=== PATIENT | male | born 1970 | race Caucasian/White ===

== ENCOUNTER 2022-11-07 09:15 | Emergency (ER) | payer OTHER, SELFPAY ==
[2022-11-07 09:20] VITALS: BP 129/73; PULSE 85; RESP 12; TEMP 37.2; O2SAT 97
--- NOTE | 2022-11-07 09:38 | ED.EYEPROB ---
HPI - Eye Problem General Chief complaint: Eye Problems Stated complaint: Eye Infection Source: patient and RN notes reviewed History of Present Illness HPI Narrative: 52-year-old male presents to urgent care with complaints of bilateral eye irritation. Patient states this has been going on for the last 3 days. Patient reports increased tearing in both eyes and states he is making up with his eyes matted shut with thick drainage. Patient reports some visual disturbance and contributes that to the drainage in his eyes. Patient reports soreness in his diet. Denies any itchiness. Patient does not wear contacts. Denies any fevers or chills. Related Data Allergies Allergy/AdvReac Type Severity Reaction Status Date / Time amoxicillin Allergy Mild THRUSH Verified 11/07/22 09:25 Review of Systems Review of Systems: CONSTITUTIONAL: Denies fever, chills, or sweats. EYES: bilateral eye drainage, matting, redness, and irritation ENT: Denies otalgia and sore throat CARDIOVASCULAR: Denies chest pain, palpitations, or edema. RESPIRATORY: Denies cough or dyspnea. GASTROINTESTINAL: Denies abdominal pain, nausea, vomiting, or diarrhea. GENITOURINARY: Denies dysuria or hematuria. SKIN: Denies rash or itching. MUSCULOSKELETAL: Denies back pain, joint pain, or myalgia. NEUROLOGIC: Denies headache, numbness, or weakness. Pertinent positives per HPI. [facility] Social History Social History (Updated 07/21/21 @ 13:20 by Amanda Hermosillo MA) Smoking packs per day: 1 Smoking cigarettes per day: 20.0 Years smoked: 20 Smoking pack-years: 20.00 Alcohol intake: current Alcohol use details: SOCIAL Substance use: never Substance use type: does not use Comments At the time of my signature, I reviewed and agree with the nursing past medical, surgical, social, and family history. There is no relevant family history pertinent to the patient complaint. Exam Narrative: GENERAL: This is a well-nourished, well-developed patient, in no apparent distress. HEAD: normocephalic, atraumatic. EYES: Bilateral conjunctivae injected. Minimal drainage noted to both eyes. EARS: External ears normal, auditory canals clear and without drainage, TMs normal without perforation. Hearing grossly intact. NOSE: External nose normal with no obvious nasal discharge, nares without redness, no rhinorrhea. THROAT: Mucous membranes moist, posterior pharynx clear. NECK: Neck supple, non-tender without lymphadenopathy, masses or thyromegaly. CARDIOVASCULAR: Regular rate RESPIRATORY: no respiratory distress SKIN: warm, intact with no suspicious lesions or rash, good texture and turgor. NEURO: awake, alert, and oriented to person, place and time. There were no obvious focal neurologic abnormalities. Course Course Level of Care: Express Care Visit Vital Signs Vital signs: Reviewed MDM - Eye Problem MDM Narrative Medical decision making narrative: Your exam today shows Conjunctivitis, You have been given a prescription for eye drops. Use the eye drops as instructed. If you are not better in two (2) days, you need to follow up with an test kitchen home economist. Do not rub the eye or put anything else in the eye, this can cause abrasions (scratches) on the eye or lead to vision loss. Also it is important not to touch the tube or tip of drops to the eye, as this can cause further infection. Wash your hands very well before instilling the medication. Handwashing can help prevent the spread of disease. Follow up with PCP in 7-10 days Return to ER for problems Contact [facility] if you need an Capacitor Pack Press Operator Differential Diagnosis Differential diagnosis: Likely corneal abrasion, conjunctivitis and acute iritis Critical Care Time Critical Care Time Critical Care Time: No Discharge Plan Discharge Clinical Impression: Conjunctivitis Qualifiers: Conjunctivitis type: unspecified Laterality: bilateral Qualified Code(s): H10.9 - Unspecified
== END 2022-11-07 09:42 | disposition home or self-care (01) ==
PROVIDERS: Emergency Provider Nurse Practitioner Family; PCP Family Medicine
DX: H10.9 Unspecified conjunctivitis (principal); F17.210 Nicotine dependence, cigarettes, uncomplicated
CPT/HCPCS: 99213; G0463

== ENCOUNTER 2023-02-09 13:38 | Outpatient (CLI) | payer OTHER, SELFPAY ==
--- NOTE | ~2023-02-09 | CT_ITS ---
EXAMINATION: CT lung screening DATE: 02/09/2023 14:08 INDICATION: Personal history of nicotine dependence, current smoker with 30 pack year history TECHNIQUE: Computed tomography (CT) of the chest was performed without intravenous contrast. The dose -length product (DLP) was 105.65 mGy-cm. Automated exposure control and iterative reconstruction tech [email or web address] were employed. COMPARISON: None FINDINGS: There is mild emphysema. 3 mm nodule in the left lower lobe. No pleural effusion or pneumot horax. There is mild dependent atelectasis. No pathologically enlarged thoracic lymph nodes are ident ified. The heart size is normal. Calcified coronary artery atherosclerosis is noted. There is moderat e lumbar spondylosis. IMPRESSION: 1. Lung-RADS category 2: Benign appearance or behavior. Continue annual screening with noncontrast lo w-dose chest CT in 12 months. Reviewed, dictated and finalized at location L. IMPRESSION: 1. Lung-RADS category 2: Benign appearance or behavior. Continue annual screeni ng with noncontrast low-dose chest CT in 12 months.
== END 2023-02-09 13:39 | disposition home or self-care (01) ==
LOC: ANHIMG 13:39
PROVIDERS: PCP Family Medicine; Visit Provider Family Medicine
DX: Z12.2 Encounter for screening for malignant neoplasm of respiratory organs (principal); F17.210 Nicotine dependence, cigarettes, uncomplicated
CPT/HCPCS: 71271

== ENCOUNTER 2025-03-28 14:54 | Outpatient (CLI) | payer OTHER, SELFPAY ==
--- NOTE | ~2025-03-28 | CT_ITS ---
EXAMINATION: CT lung screening DATE: 03/28/2025 15:12 INDICATION: Personal history of nicotine dependence TECHNIQUE: Computed tomography (CT) of the chest was performed without intravenous contrast. The dose-length product was 125.49 mGy-cm.] Automated exposure control and iterative reconstruction technique were employed. COMPARISON: CT dated 02/09/2023 FINDINGS: No significant pleural or pericardial effusion. Heart size normal. There is atherosclerosis of the aorta and coronary arteries. No thoracic lymphadenopathy. No endobronchial lesions. No focal airspace consolidation. Stable 3 mm left lower lobe nodule. No new pulmonary nodules or masses. IMPRESSION: 1. Lung-RADS category 2: Benign appearance or behavior. Continue annual screening with noncontrast low-dose chest CT in 12 months. Reviewed, dictated and finalized at location O. FITS SPECIALIST IMPRESSION: 1. Lung-RADS category 2: Benign appearance or behavior. Continue annual screeni ng with noncontrast low-dose chest CT in 12 months.
--- OUTSIDE RECORDS SUMMARY | 2025-03-29 14:42 | XMS_ITS | Clinical Summary ---
Author Organization [facility] Address [address] [place] [address] Care Team Providers Care Piano And Organ Refinisher Name Role Phone Unknown, Provider Primary Care Provider Unavaila ble Source Comments [facility],non-owned Affiliates and Associated Physician Practices is amultiple site organization consisting of ambulatory clinics and hospital sitesin [place], [place], [place] and [place]. This disclosure is being madepursuant to the Care Everywhere program and may not contain all information available regarding this patient. Last updated 18.[facility] Allergies No known active allergies Medications * Be aware that medications may not be up to date on this document. Alwaysverify current medications with the patient. Doxycycline Hyclate (DOXY-CAPS PO) Activ e amLODIPine (NORVASC) 5 MG tablet Take 5 mg by mouth once daily Active HYDROCHLOROTHIAZ AGGIE PO Active Aluminum & Magnesium Hydroxide (MAALOX/2% VISCOUS LIDOCAINE/BENADR YL TINCT 1:1:1)Indication s:Thrush Take 15 mL by mouth every 2 hours as needed (for mouth sores) Swish and Spit 720 mL 1 12/05/2020 Active Active Problems No known active problems Social History Tobacco Use Types Packs/Day Years Used Date Smoking Tobacco: Every Day Smokeless Tobacco: Never Sex and Gender Information Value Date Recorded Sex Assigned at Not on file Legal Sex Male 9:29 AM CDT Gender Identity Not on file Sexual Orientation Not on file Last Filed Vital Signs Vital Sign Reading Time Taken Comments Blood Pressure 130/88 12/05/2020 12:56 PM CDT Pulse 99 12/05/2020 12:56 PM CDT Temperature 36.9 C (98.5 F) 12/05/2020 12:56 PM CDT Respiratory Rate - - Oxygen Saturation 97% 12/05/2020 12:56 PM CDT Inhaled Oxygen Concentration - - Weight 83.9 kg (185 lb) 12/05/2020 12:56 PM CDT Height 177.8 cm (5' 10) 12/05/2020 12:56 PM CDT Body Mass Index 26.54 12/05/2020 12:56 PM CDT Plan of Treatment Health Maintenance Due Date Last Done Comments COLOGUARD (AGES 45-75) - COL ON CA SCREENING 1972 COLON MONITORING 1972 COLONOSCOPY - COLON CA SCREENING 1972 CT COLONOGRAPHY - COLON CA SCREENING 1972 Colorectal Cancer Screening 1972 FIT - COLON CA SCREENING 1972 FLEX SIG - COLON CA SCREENING 1972 LIPID TESTING 1972 HIV SCREENING 02/04/1987 HEPATITIS C SCREENING 01/31/1990 DTAP/TDAP/TD VACCINES (1 - Tdap) 02/04/1991 HEPATITIS B VACCINE (1 of 3 - 19+ 3-dose series) 02/04/1991 SCREENING FOR DIABETES 12/05/2020 PNEUMOCOCCAL VACCINE 50+ (1 of 1 - PCV) 02/04/2022 ZOSTER VACCINE (1 of 2) 02/04/2022 DEPRESSION SCREENING 05/24/2024 COVID-19 VACCINE (3 - 2024-2 6 season) 2025 06/19/2020, 05/29/2020 INFLUENZA VACCINE (#1) 2025 HIB VACCINE Aged Out No longer eligi ble based on patient's age to complete this topic HPV VACCINE Aged Out No longer eligi ble based on patient's age to complete this topic MENINGOCOCCAL (Group B) VACCINE SHARED DECISION-MAKING Aged Out No longer eligible based on patient's age to complete this topic MENINGOCOCCAL GROUPS A/C/Y/W VACCINE Aged Out No longer eligible b ased on patient's age to complete this topic Insurance [employer] Care Teams Piano And Organ Refinisher Relationship Specialty Start Date End Date Unknown, Provider PCP - General 12/05/20
== END 2025-03-28 14:55 | disposition home or self-care (01) ==
LOC: ANHIMG 14:59
PROVIDERS: PCP Family Medicine; Visit Provider Family Medicine
DX: Z12.2 Encounter for screening for malignant neoplasm of respiratory organs (principal); Z87.891 Personal history of nicotine dependence
CPT/HCPCS: 71271

== ENCOUNTER 2025-04-16 06:33 | Day surgery (SDC) | payer OTHER, SELFPAY ==
[2025-04-04 13:46] VITALS: BMI 28.0
[2025-04-16 07:04] VITALS: BP 140/91; PULSE 80; RESP 18; TEMP 36.6; O2SAT 99
--- NOTE | 2025-04-16 07:19 | P.PNAN_ITS ---
Anes - Initial Pre Proc Eval Procedure: Operation Date: 04/16/25 08:00 Proposed Procedures p Screening Colonoscopy - Bethel Thomas DO Date/Time: 04/16/25 07:19 Surgeon: Bethel Thomas DO Pre Op Diagnosis: Neoplasm Screening Patient Data Age: 55 Gender: M Height: 1.75 m Weight: 83.5 kg Last Vital Signs Temp 97.9 F 04/16/25 07:04 Pulse 80 04/16/25 07:04 Resp 18 04/16/25 07:04 BP 140/91 H 04/16/25 07:04 Pulse Ox 99 04/16/25 07:04 O2 Del Method Room Air 04/16/25 07:04 Allergies Allergy/AdvReac Type Severity Reaction Status Date / Time amoxicillin AdvReac Mild THRUSH Verified 04/16/25 06:59 Home Medications ?Medication ?Instructions ?Recorded ?Confirmed ?Type amlodipine 5 mg tablet 5 mg PO DAILY #90 tabs 01/1104/16/25 Rx hydrochlorothiazide 25 mg tablet 25 mg PO DAILY #90 ta bs 01/11/25 04/04/25 Rx Held on 04/04/25. Instructions: .Provider Order propranolol 80 mg capsule,24 80 mg PO DAILY #90 caps 0 01/11/25 04/16/25 Rx hr,extended release esomeprazole magnesium 20 mg 20 mg PO DAILY 04/04/25 1 06/16/24 History capsule,delayed release (Nexium) Patient hx anesthesia problems: none Family hx anesthesia problems: none Results Review: All pre-operative results and documents have been reviewed as part of the pre- operative evaluation. [facility] Family History Family History Mother Hypertension Family history of chronic obstructive pulmonary disease Family history of diabetes mellitus in first degree relative Father Patient's father is in good health Family history of chronic obstructive pulmonary disease Sibling Family history of diabetes mellitus in first degree relative Grandparent Diabetes mellitus Social History Social History Smoking packs per day: 1 Smoking cigarettes per day: 20.0 Years smoked: 20 Smoking pack-years: 20.00 Smoking status: Current every day smoker Tobacco type: cigarettes Additional smoking assessment comments: Wanting to talk about smoking Alcohol intake: current Alcohol use details: SOCIAL Substance use: never Substance use type: does not use Lack of Transportation: No Lack of Food: Never True Current Housing: I Have Housing Concerned About Future Housing: No Difficulty Paying Gas/Electric Bills: No Difficulty Paying for Meds: No Currently Unemployed: No Education: Trade/Vocational Certificate Difficulty w/ Childcare or Family Care: No Anes - Eval Final PreProcedure Day of Procedure 04/16/25 07:19 Heart: regular rate and rhythm Lungs: clear to auscultation Airway: Mallampati scale class II Neurological: alert and oriented Last oral intake: >/= 8 hours ASA classification: II Anesthetic plan: proceed Anesthesia type and monitoring: general Results Review: All pre-operative results and documents have been reviewed as part of the pre- operative evaluation. Informed Consent: The patient's anesthetic plan and its attendant risks and benefits were discussed with the patient/family/POA. Questions were solicited and answers provided to the satisfaction of the patient/family/POA.
--- NOTE | 2025-04-16 07:47 | P.HP_ITS ---
H&P: HPI History of Present Illness Date/Time: 04/16/25 07:47 Chief Complaint: fam hx colon cancer Narrative: 55 yo presents for first colonoscopy. fam hx colon cancer in his father who was diagnosed in his 70s. Denies hematochezia or melena. Review of Systems Review of Systems: All systems reviewed & are unremarkable except as noted in HPI and below Constitutional: Constitutional: Denies chills, Denies fever(s), Denies headache(s) and Denies weight loss Eyes: Eyes: Denies change in vision ENT: Denies dizziness, Denies headache(s), Denies neck mass and Denies throat swelling Cardiovascular: Cardiovascular: Denies chest pain, Denies lightheadedness and Denies dyspnea Respiratory: Respiratory: Denies cough, Denies dyspnea and Denies wheezing Gastrointestinal: Gastrointestinal: Denies abdominal pain, Denies change in bowel habits, Denies nausea and Denies vomiting Genitourinary: Genitourinary: Denies hematuria and Denies dysuria Musculoskeletal: Musculoskeletal: Reports as per HPI Integumentary/Breasts: Skin/Breast: Reports as per HPI Neurologic: Denies dizziness and Denies headache(s) Allergic/Immunologic: Allergic/Immunologic: Denies throat swelling and Denies wheezing PMF Family History Family History Mother Hypertension Family history of chronic obstructive pulmonary disease Family history of diabetes mellitus in first degree relative Father Patient's father is in good health Family history of chronic obstructive pulmonary disease Sibling Family history of diabetes mellitus in first degree relative Grandparent Diabetes mellitus Social History Social History Smoking packs per day: 1 Smoking cigarettes per day: 20.0 Years smoked: 20 Smoking pack-years: 20.00 Smoking status: Current every day smoker Tobacco type: cigarettes Additional smoking assessment comments: Wanting to talk about smoking Alcohol intake: current Alcohol use details: SOCIAL Substance use: never Substance use type: does not use Lack of Transportation: No Lack of Food: Never True Current Housing: I Have Housing Concerned About Future Housing: No Difficulty Paying Gas/Electric Bills: No Difficulty Paying for Meds: No Currently Unemployed: No Education: Trade/Vocational Certificate Difficulty w/ Childcare or Family Care: No Meds Home Medications and Allergies Home Medications ?Medication ?Instructions ?Recorded ?Confirmed ?Type amlodipine 5 mg tablet 5 mg PO DAILY #90 tabs 01/1104/16/25 Rx hydrochlorothiazide 25 mg tablet 25 mg PO DAILY #90 ta bs 01/11/25 04/04/25 Rx Held on 04/04/25. Instructions: .Provider Order propranolol 80 mg capsule,24 80 mg PO DAILY #90 caps 0 01/11/25 04/16/25 Rx hr,extended release esomeprazole magnesium 20 mg 20 mg PO DAILY 04/04/25 1 06/16/24 History capsule,delayed release (Nexium) Allergies Allergy/AdvReac Type Severity Reaction Status Date / Time amoxicillin AdvReac Mild THRUSH Verified 04/16/25 06:59 Vital Signs Vital Signs - 24 hr 04/16/25 07:04 Temperature 97.9 F Pulse Rate 80 Respiratory Rate 18 Blood Pressure 140/91 H Pulse Oximetry 99 Oxygen Delivery Room Air Exam Const: General: no acute distress and alert Orientation/consciousness: patient oriented x3 HENMT: Head: normocephalic and atraumatic Ears: hearing grossly normal bilaterally Face/Nose/Sinus: Normal nares present Mouth: Yes Normal oral and palatal mucosa present Eyes: Periorbital: periorbital findings normal Sclera: sclerae normal EOM: EOMs intact bilaterally Neck: Neck: normal visual inspection, no lymphadenopathy and trachea midline Chest: Chest palpation & inspection: normal inspection of the chest Resp: Effort & Inspection: normal respiratory effort Auscultation: clear to auscultation bilaterally Cardio: Jugular venous distension: no JVD Rate: regular rate Rhythm: regular rhythm Heart sounds: S1 normal heart sound present and S2 normal heart sound present Peripheral pulses: Peripheral pulses 2+ throughout GI: Inspection: normal to inspection GI Palp: Yes Soft to palpation, No Tenderness to palpation present (GI), No Guarding due to palpation present (GI) and No Rebound tenderness present Percussion: Yes normal to percussion Auscultation: normal bowel sounds : General: Yes no CVA tenderness Back/Spine/Pelvis: Back: no CVA tenderness Neuro: General: patient oriented x3, no focal motor deficits and CN's II-XI intact bilaterally Cognition (Neuro): normal cognition Speech: normal speech Motor exam (neuro): 5/5 motor strength present throughout Extrem: General: capillary refill normal and no clubbing, cyanosis or edema Assessment and Plan Assessment and plan (1) Family hx of colon cancer: Code(s): Z80.0 - Family history of malignant neoplasm of digestive organs Status: Acute Assessment and Plan: I have recommended colonoscopy. I have discussed the procedure, risks, benefits, and alternatives. Questions were answered. Patient is agreeable to proceed. (2) Colon cancer screening: Code(s): Z12.11 - Encounter for screening for malignant neoplasm of colon Status: Acute
--- NOTE | 2025-04-16 08:14 | WPDANESPN ---
Anes - Prog Note Post-Op Date/Time: 04/16/25 08:14 Vital Signs: Last Vital Signs Temp 97.9 F 04/16/25 07:04 Pulse 80 04/16/25 07:04 Resp 18 04/16/25 07:04 BP 140/91 H 04/16/25 07:04 Pulse Ox 99 04/16/25 07:04 O2 Del Method Room Air 04/16/25 07:04 Pain Score (VAS): no Patient Feedback: Patient satisfied with anesthetic care.
[2025-04-16] MEDS: LACTATED RINGERS 1,000 ML 150 ML IV CONT (09:07)
[2025-04-16 09:09] VITALS: BP 114/77; PULSE 69; RESP 16; O2SAT 100
[2025-04-16 09:19] VITALS: BP 124/77; PULSE 72; RESP 16; O2SAT 100
[2025-04-16 09:29] VITALS: BP 135/76; PULSE 62; RESP 18; O2SAT 100
== END 2025-04-16 09:40 | disposition home or self-care (01) ==
PROVIDERS: PCP Family Medicine; Visit Provider Surgery
PROC: 0DJD8ZZ Inspection of Lower Intestinal Tract, Via Natural or Artificial Opening Endoscopic (ICD-10-PCS; CPT 45378; principal; 2025-04-16 08:00)
DX: Z12.11 Encounter for screening for malignant neoplasm of colon (principal); D12.2 Benign neoplasm of ascending colon; D12.3 Benign neoplasm of transverse colon; D12.5 Benign neoplasm of sigmoid colon; K57.30 Diverticulosis of large intestine without perforation or abscess without bleeding; K64.8 Other hemorrhoids; Z80.0 Family history of malignant neoplasm of digestive organs; K63.5 Polyp of colon
CPT/HCPCS: 45381; 45385

== ENCOUNTER 2025-04-16 10:30 | Outpatient (NON) | payer OTHER, SELFPAY ==
--- NOTE | 2025-04-16 | S_PTH ---
PATIENT: Darell Velasquez LOC: [facility] U#:[id number] AGE/SX: 55/M ROOM: RE04/16/[address]: Bethel Thomas DO : 1970 BED: DIS: 04/16/2025 SPEC #: [id number] RECD: 04/17/25 10:49 STATUS: SUSAN BAUER #: [id number] LUTHER: 04/16/25 00:[address]: Bethel Thomas DEPT: [facility] Surgical RECD BY: Pj Herrera ENTERED: 04/17/25 10:56 SP TYPE: Surgical OTHR DR: Basilio Valdivia MD Tissues: A - Colon Polypectomy B - Colon Polypectomy C - Colon Polypectomy D - Colon Polypectomy E - Colon Polypectomy Procedures: Hematoxylin and Eosin Stain Gross and Microscopic Level 4
--- OUTSIDE RECORDS SUMMARY | 2025-04-17 11:51 | XMS_ITS | Clinical Summary ---
Author Organization [facility] Address [address] [place] [address] Care Team Providers Care Journeyman Pipe Welder Name Role Phone Unknown, Provider Primary Care Provider Unavaila ble Source Comments [facility],non-owned Affiliates and Associated Physician Practices is amultiple site organization consisting of ambulatory clinics and hospital sitesin [place], [place], [place] and [place]. This disclosure is being madepursuant to the Care Everywhere program and may not contain all information available regarding this patient. Last updated 18.[facility] Allergies No known active allergies Medications * [...] topic Insurance [employer] Care Teams Journeyman Pipe Welder Relationship Specialty Start Date End Date Unknown, Provider PCP - General 12/05/20
== END 2025-04-16 10:31 | disposition home or self-care (01) ==
LOC: ANHLAB 04-17 10:31
PROVIDERS: PCP Family Medicine; Visit Provider Surgery
DX: Z12.11 Encounter for screening for malignant neoplasm of colon (principal); D12.2 Benign neoplasm of ascending colon; D12.3 Benign neoplasm of transverse colon; D12.5 Benign neoplasm of sigmoid colon; K63.5 Polyp of colon
CPT/HCPCS: 88305

== ENCOUNTER 2025-05-22 09:58 | Outpatient (CLI) | payer OTHER, SELFPAY ==
--- OUTSIDE RECORDS SUMMARY | 2025-05-22 10:29 | XMS_ITS | Clinical Summary ---
Author Organization [facility] Address [address] [place] [address] Care Team Providers Care Jet Handler Name Role Phone Unknown, Provider Primary Care Provider Unavaila ble Source Comments [facility],non-owned Affiliates and Associated Physician Practices is amultiple site organization consisting of ambulatory clinics and hospital sitesin [place], [place], [place] and [place]. This disclosure is being madepursuant to the Care Everywhere program and may not contain all information available regarding this patient. Last updated 18.[facility] Allergies No known active allergies Medications * [...] of 3 - 19+ 3-dose series) 02/04/1991 PNEUMOCOCCAL VACCINE 50+ (1 of 2 - PCV) 02/04/1991 SCREENING FOR DIABETES 12/05/2020 ZOSTER VACCINE (1 of 2) 02/04/2022 DEPRESSION [...] patient's age to complete this topic Insurance [facility] SELF PAY NO INSURANCE Member Subscriber Plan / Payer (Ef fective for All Dates) Name:Eriberto Velasquez Member ID:Not on file Relation to Subscriber:Not on file Name:ERIBERTO VELASQUEZ Subscriber ID:Not on file (Home) Address: [address] [place] [id number] Payer ID:Not on file Group ID:Not on file Type:Self Pay Address: [place], [place] Care Teams Jet Handler Relationship Specialty Start Date End Date Unknown, Provider PCP - General 12/05/20
--- NOTE | 2025-05-22 10:32 | ECG_ITS ---
Test Date: 2025-05-22 10:47:08 Measurements Intervals [place] Rate: 70 P: 54 MS: 136 QRS: 65 QRSD: 84 T: 55 QT: 409 QTc: 443 Interpretive Statements SINUS RHYTHM WITH SINUS ARRHYTHMIA NONSPECIFIC T-WAVE ABNORMALITY- ANTERIOR LEADS BASELINE ARTIFACT- I, II, III, AVR, AVL, AVF, V1-V6 BORDERLINE ECG No previous ECG available for comparison Electronically Signed On 05-22-2025 19:20:58 ELECTRIC WELDER HELPER by Daren Gonzalez D.O.
[2025-05-22 10:55] LABS: Hematocrit 42.9 % (42.0-52.0); Hemoglobin 14.5 g/dL (14.0-18.0)
== END 2025-05-22 09:59 | disposition home or self-care (01) ==
LOC: ANHSURGERY 10:04
PROVIDERS: Anesthesiology; PCP Family Medicine; Visit Provider Surgery
DX: Z01.818 Encounter for other preprocedural examination (principal); R94.31 Abnormal electrocardiogram [ECG] [EKG]; D12.6 Benign neoplasm of colon, unspecified; I10 Essential (primary) hypertension; E78.5 Hyperlipidemia, unspecified; D36.9 Benign neoplasm, unspecified site
CPT/HCPCS: 36415; 85014; 85018; 86850; 86900; 86901; 93005